=== PATIENT | female | born 1940 | race African-American/Black ===

== ENCOUNTER 2017-11-08 10:56 | Outpatient (CLI) | payer MEDICARE, OTHER ==
--- NOTE | 2017-11-08 13:43 | MRI ---
BRAIN MRI WITHOUT CONTRAST: Date: 11/08/17 HISTORY: Vision change. Memory loss. COMPARISON: None. TECHNIQUE: Brain MRI is performed without intravenous Gadolinium administration. Multisequential, multiplanar im aging is performed. FINDINGS: No hemorrhage on the axial gradient echo sequence. Calvarium has a normal marrow signal intensity. Mi dline brain parenchymal structures are unremarkable. The pituitary gland appears to be mildly enlarge d, measuring 1.1 cm, with a convex border. Pituitary brain MRI protocol is recommended. There are T2 and FLAIR white matter hyperintensities due to chronic small vessel ischemic change. Mundo tral arterial flow-voids are maintained. Absent restricted diffusion. No parenchymal mass, mass effect, or midline shift. Age-appropriate brain volume. Cortical almaguer-white matter differentiation is preserved. No evidence of hydrocephalus. Adequate aeration of the sinuses and mastoid air cells. IMPRESSION: 1. Prominent pituitary gland. Pituitary mass protocol MRI is recommended. 2. Chronic small vessel ischemic changes of white matter. POS: [facility]
--- NOTE | 2017-11-08 14:54 | EEG ---
Referring Physician: DR. LUPE SANCHEZ EEG # [id number] PROCEDURE: Outpatient electroencephalogram NAME OF PATIENT: Melissa Doll STUDY DATE: 11/08/2017 INDICATION: Memory impairment, vision changes EEG CLASSIFICATION: Normal awake and asleep: REPORT: This is a 22 channel digital EEG recording utilizing ten-twenty international electrode placement system on a patient who presents with memory impairment and vision changes. During wakefulness the background activity consists of low amplitude alpha rhythm of 8-9 hertz. It is symmetric and reactive. This activity is penetrated by low amplitude fast beta activity and also with myogenic activity representing frontalis and temporalis muscles bilaterally. DROWSINESS: The subject is able to attain periods of drowsiness with diffuse theta activity. No asymmetry or paroxysmal activity noted. SLEEP: Subject is able to attain some non-REM sleep with normal sleep potentials. Again, no asymmetry or paroxysmal activity noted. INDUCTION: PHOTIC STIMULATION: Some photic drive seen. HYPERVENTILATION: With fair effort results in some theta activity towards the end. IMPRESSION: THIS EEG IS CONSIDERED NORMAL AWAKE AND ASLEEP EEG. THERE IS NO CLEAR EPILEPTIFORM ACTIVITY OR FOCAL ABNORMALITY NOTED. CLINICAL CORRELATION IS RECOMMENDED Chemical Preparer: PRAVIN Inspector Missile: EEG.[email or web address] LLOYD
== END 2017-11-08 10:57 | disposition home or self-care (01) ==
LOC: MRI 10:56
PROVIDERS: ATTEND Student in an Organized Health Care Education/Training Program
DX: R41.3 Other amnesia (principal); H53.9 Unspecified visual disturbance; E23.6 Other disorders of pituitary gland
CPT/HCPCS: 70551; 95816

== ENCOUNTER 2017-11-23 10:08 | Outpatient (CLI) | payer MEDICARE, OTHER | END 2017-11-23 10:09 | disposition home or self-care (01) | LOC: MRI 10:08 | PROVIDERS: ATTEND Student in an Organized Health Care Education/Training Program | DX: R93.0 Abnormal findings on diagnostic imaging of skull and head, not elsewhere classified (principal); H53.9 Unspecified visual disturbance; R22.0 Localized swelling, mass and lump, head; G93.89 Other specified disorders of brain | CPT/HCPCS: 70553; 82565 ==

== ENCOUNTER 2018-12-28 12:22 | Outpatient (CLI) | payer MEDICARE, OTHER ==
--- NOTE | 2018-12-28 14:59 | RAD ---
OSSEOUS SURVEY: DATE: 12/28/2018. PROVIDED CLINICAL HISTORY: Multiple myeloma. FINDINGS: Lateral skull, frontal and lateral cervical, thoracic, and lumbar spine, frontal humeri, forearm, pel andre, femoral, and foreleg radiographs submitted. There is no evidence for radiographically apparent radiolucent lesion. Degenerative changes are seen involving the spine. Vertebral body heights are p reserved. Cholecystectomy clips are seen. IMPRESSION: No evidence for radiographically apparent myelomatous lesion. POS: [facility]
== END 2018-12-28 12:23 | disposition home or self-care (01) ==
LOC: BICRAD 12:22
PROVIDERS: ATTEND Internal Medicine Hematology & Oncology
DX: C90.00 Multiple myeloma not having achieved remission (principal); D72.818 Other decreased white blood cell count; R77.1 Abnormality of globulin
CPT/HCPCS: 77075

== ENCOUNTER 2019-03-03 19:55 | Observation (INO) | payer MEDICARE, OTHER ==
[2019-03-03] MEDS ORDERED: Acetaminophen 325 MG TAB PO PRN (22:22)
[2019-03-03] MEDS ORDERED: Acetaminophen 650 MG Suppository PR PRN (22:22)
[2019-03-03] MEDS ORDERED: Ondansetron ODT 4 MG TAB PO PRN (22:22)
[2019-03-03] MEDS ORDERED: Ondansetron PF 4 MG/2 ML Vial IVP PRN (22:22)
[2019-03-03 23:13] VITALS: BMI 21.6
--- NOTE | 2019-03-04 05:16 | HP ---
PRIMARY CARE DOCTOR: Azra Silver DO CODE STATUS: Full code. TIME OF EVALUATION: 9 p.m. CHIEF COMPLAINT: The patient is feeling weak and dizzy. HISTORY OF PRESENT ILLNESS: A 78-year-old female patient with past medical history of dizziness. The patient has had difficulty ambulating, having unsteady gait for the past few days with no clear triggers, no alleviating factors. She was seen to have some family member is in the room and she does not describe any other symptoms. Symptoms were moderate with no clear triggers, no alleviating factors. REVIEW OF SYSTEMS: Unable to fully explore. The patient has dementia and information does not seems to be accurate. This has been reviewed with family member and it seems like the patient not have any other significant symptoms. PAST MEDICAL HISTORY: Includes benign pituitary tumor, hypertension, appendectomy, and hysterectomy. PSYCHIATRIC HISTORY: No previous psych history. SOCIAL HISTORY: No alcohol. No drugs. No smoking history. KNOWN ALLERGIES: No known drug allergies. REPORTED MEDICATION: 1. Methotrexate. 2. Estradiol. 3. Amlodipine. 4. Namenda. 5. Folic acid. 6. Vitamin E. 7. Nitroglycerin. 8. Fentanyl. 9. Hydrochlorothiazide. PHYSICAL EXAMINATION: VITAL SIGNS: On presentation; blood pressure 145/58 with heart rate 63, respiratory rate was 19, temperature was 97.5. GENERAL APPEARANCE: The patient is alert and oriented, not in acute distress. HEENT: Eyes; normal conjunctivae. ENT; moist oral mucosa. Anicteric. No JVD. RESPIRATORY: Bilateral air entry. No rales. No wheezes. Symmetric expansion. CARDIOVASCULAR: Normal rate, regular rhythm. No murmurs. No gallop. No edema. ABDOMEN: Soft. Normal bowel sounds. MUSCULOSKELETAL: Baseline range of motion and strength. SKIN: Warm and intact. No pallor. No rash. No redness. Capillary refill seems to intact. NEUROLOGIC: No evidence of any new focal weakness. PSYCH: The patient has underlying dementia, can answer simple questions. Suboptimal judgment. LABORATORY DATA: Reviewed. The patient has white count 5.3, hemoglobin 11.3, MCV 104, platelet count 179. Coagulation; PT 14.8 with INR normal. Chemistry; sodium 135, potassium 4.2, chloride 102, carbon dioxide 25, anion gap 12, BUN 20, creatinine 1.21, GFR 52, glucose 147, calcium 10. Troponin was negative. Total bilirubin was normal. LFTs mildly elevated with AST 72 and ALT 69, alkaline phosphatase 64. Troponin was negative. Brain CT was done. No acute intracranial findings, exam no different than the 2018 MRI. ASSESSMENT AND PLAN: The patient has been placed in the hospital with following medical problems; 1. Possible posterior circulation transient ischemic attack, symptoms have improved. We will do a stroke protocol. We do MRI. We will follow results and treat accordingly. We will do echo, carotid Doppler. Rest of stroke protocol to be done. 2. History of underlying dementia. The patient will need supportive care. We will monitor and treat accordingly. 3. Uncontrolled hypertension with systolic blood pressure of 145. We will monitor and treat accordingly. 4. Deep venous thrombosis prophylaxis. Job ID: [id number]
[2019-03-04 05:30] LABS: #Lymphocytes 1.4 thou/uL (1.20-3.40); #Monocytes 0.4 thou/uL (0.11-0.59); %Basophils 0.8 % (0.0-1.0); %Lymphocytes 29.3 % (21.0-51.0); %Monocytes 8.6 % (0.0-10.0); %Neutrophils 60.4 % (42.0-75.0); Hemoglobin 11.4 g/dL (12.0-16.0); Mean Corpuscular HGB CONC 34.2 g/dL (32.0-36.0); Mean Corpuscular Hemoglobin 35.6 pg (27.0-31.0); Mean Platelet Volume 7.2 fL (7.4-10.4); Platelet Count 186 thou/uL (130-400); White Blood Cell (WBC) Count 4.9 thou/uL (4.8-10.8)
[2019-03-04 06:00] LABS: Anion Gap 9 mmol/L (10-20); BUN (Urea Nitrogen) 22 mg/dL (9.8-20.1); Calc. Creatinine Clearance 42 mL/min (70-130); Calcium 9.8 mg/dL (7.8-10.44); Carbon Dioxide 25 mmol/L (23-31); Cardiac Risk 4.1 (Less than 4.5); Chloride 107 mmol/L (98-107); Cholesterol 164 mg/dl (< 200 Desired); Estimated GFR-MDRD 63; Glucose 96 mg/dL (83-110); HDL Cholesterol 40 mg/dL (>60 Neg Risk); LDL Cholesterol, Calculated 101 mg/dL; Sodium 137 mmol/L (136-145); Triglycerides 117 mg/dL (Less than 150)
--- NOTE | 2019-03-04 08:00 | ULT ---
EXAM: Carotid Doppler PROVIDED CLINICAL HISTORY: TIA COMPARISON: None FINDINGS: Grayscale and color Doppler sonography with spectral analysis was performed of the extracranial carot id system bilaterally. There is no evidence for a hemodynamically significant internal carotid artery stenosis by peak systolic velocity or ratio criteria. Antegrade flow is seen in the vertebral arteries. IMPRESSION: No sonographic evidence for a hemodynamically significant internal carotid artery stenosis.
[2019-03-04] MEDS ORDERED: Enoxaparin Sodium 40 MG/0.4 ML SYRINGE SC SCH (09:00)
[2019-03-04] MEDS ORDERED: Prevnar 13-Val Conj/PF 0.5 ML SYRINGE IM ONE (09:00)
[2019-03-04 12:02] VITALS: BP 129/74; TEMP 97.4
--- NOTE | 2019-03-04 12:15 | MRI ---
MRI BRAIN WITH AND WITHOUT CONTRAST: HISTORY: Pituitary mass. Dementia. Transient dizziness. COMPARISON: 11/23/2017 FINDINGS: The calvarium has a normal T1 marrow signal intensity. Midline brain parenchymal structures are unre markable. No brain parenchymal mass, mass effect, or midline shift. Brain volume is age appropriate. Cortical almaguer white matter differentiation is preserved. Prominence of the ventricular system, greater than expected for the degree of atrophy. Correlate for normal pressure hydrocephalus. Central arterial flow voids are maintained. Absent restricted diffusion. T2 and FLAIR white matter hyperintensity due to chronic small vessel ischemic change. No pathologic enhancement of the brain parenchyma. Adequate aeration of the mastoid air cells. Mild mucosal thickening of the paranasal sinuses. Redemonstration of a T1 hypointense, T2 isointense lesion occupying the right aspect of the pituitary gland. There is slight leftward deviation of the infundibulum. On the post contrast images, there is no significant enhancement. This lesion measures 0.9 cm anterior-posterior x 0.7 cm medial-latera l x 0.9 cm craniocaudal. Previously, this lesion measured approximately 1 cm. No significant mass effect among the optic chiasm or prechiasmatic optic nerves. IMPRESSION: 1. Redemonstration of a mass occupying the right aspect of the pituitary gland, unchanged in size an d signal characteristics. 2. Prominence of the ventricular system. Correlate clinically for normal pressure hydrocephalus. POS: [facility]
--- NOTE | 2019-03-04 18:12 | CON ---
DATE OF TELEMEDICINE CONSULTATION: 03/04/2019 Nurse practitioner with me, Anaya. CHIEF COMPLAINT: Dizziness. HISTORY OF PRESENT ILLNESS: The patient was unable to give me a clear history because of her forgetfulness. Per , she became dizzy and was stumbling. He needed to help her walk around the house and she became confused and kept saying what happened to me, and this happened at 12 noon yesterday and it lasted about an hour. The patient has no memory of this. The patient had a pituitary tumor in the past and Alzheimer's, and says she has had chronic memory problems due to these condition. The patient did not report any weakness, numbness, or vision issues. PREVIOUS MEDICAL HISTORY: Pituitary tumor, hypertension, appendectomy, hysterectomy, and Alzheimer dementia. PSYCHIATRIC HISTORY: None. SOCIAL HISTORY: She does not drink or smoke. She lives with her . She is very pleasantly demented. 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 FAMILY HISTORY: She has 2 brothers and 5 sisters. Mother from dementia at 93. Father in his late 70s. REVIEW OF SYSTEMS: Difficult to obtain due to her memory problem. ALLERGIES: NO KNOWN DRUG ALLERGIES. MEDICATIONS: At home, she takes, 1. Methotrexate. 2. Estradiol. 3. Amlodipine. 4. Namenda. 5. Folic acid. 6. Vitamin E. 7. Nitroglycerin. 8. Fentanyl. 9. Hydrochlorothiazide. LABORATORY WORKUP: White count 4.9, hemoglobin 11.4, hematocrit 33.2, and platelet count 186. Chemistry; sodium 137, potassium 4, chloride 107, bicarb 25, BUN 22, creatinine 1.02. Triglycerides 117, cholesterol 164, LDL 101, HDL 40. Her MRI of the brain was completed after I requested this morning and her MRI showed re-demonstration of mass occupying the right aspect of the pituitary gland, unchanged in size and signal from the prior imaging and prominence of ventricular system correlate clinically for normal-pressure hydrocephalus and no evidence of infarct. PHYSICAL EXAMINATION: VITAL SIGNS: Temperature 97.6, pulse 73, respiratory rate 16, O2 saturations 97 %, and blood pressure 143/72. GENERAL APPEARANCE: Thin built, well-nourished, very pleasant lady. CHEST: Clear vesicular breathing. CARDIOVASCULAR: S1 and S2 heard. No murmurs in carotid exam. NEUROLOGIC: Higher intellectual function. She was not oriented to time, but oriented to place and person. Appropriate with some responses and can follow all commands. Cranial nerves 2 through 12 normal. Normal extraocular movements. Pupils 2 mm bilaterally. Tongue midline. No atrophy noted. Normal sensation of face bilaterally. Normal hearing to finger rub bilaterally and normal elevation of palate. Motor exam; bulk normal, tone normal. Strength 5/5 in upper and lower extremities in iliopsoas, hamstrings, quadriceps, ankle dorsiflexion, plantar flexion, deltoid, biceps, triceps, wrist extension and flexion, finger extension and flexion. Sensory exam normal bilaterally. Deep tendon reflexes throughout. Cerebellar, normal [id number], [id number]. Gait exam was normal. She was able to walk rather quickly. IMPRESSION AND RECOMMENDATIONS: The patient is a 78-year-old lady with known history of Alzheimer dementia and pituitary tumor. She had an episode of difficulty with walking and confusion, which lasted about an hour. She also has hypertension. Her examination was normal except for memory problems, which she has at baseline. Per , she is back to baseline. I do think she might have had a transient ischemic attack, which is the most appropriate diagnosis in her case. I reviewed her MRI report, which did not show any acute infarct and carotid artery Doppler was also negative. By the time of this dictation, the patient has been discharged from the hospital. If MRI was negative for an infarct, my recommendation was to discharge the patient to go home and she can stay on aspirin for stroke prophylaxis. Call Neurology if you have any further questions. Job ID: [id number] MTDD
--- NOTE | 2019-03-04 21:34 | DIS ---
DATE OF ADMISSION: 03/03/2019 DATE OF DISCHARGE: 03/04/2019 DISCHARGE DIAGNOSES: 1. Dizziness, multifactorial including heat exposure. 2. Pituitary adenoma, chronic. 3. Hypertension, stable. 4. Dementia, likely Alzheimer's type. CONSULTATIONS: None. PERTINENT LABORATORY AND X-RAY FINDINGS: Creatinine 1.02, estimated GFR of 63. Total cholesterol 164, triglycerides 117, HDL 40, LDL 101. CBC showed a white blood cell count of 4.9, hemoglobin 11, hematocrit 33, MCV 104, platelet count 186. CT of the brain without contrast dated 03/03/2019, showed no acute intracranial process. MRI of the brain dated 03/04/2019, showed no acute intracranial process. Mass noted in the right aspect of the pituitary gland, unchanged in size and position from previous MRI imaging in 2018. Carotid Doppler study dated 03/04/2019, showed no hemodynamically significant stenosis. HOSPITAL COURSE: The patient was initially observed on the stroke unit after presenting with weakness and dizziness. The patient underwent extensive evaluation including neuroimaging after initial concern for potential stroke like symptoms. The patient underwent CT and MRI imaging of the brain showing no acute process. The patient was noted with pituitary adenoma, unchanged in size and position dating back to 2018. The patient received general supportive management and remained clinically stable during the hospital course. The patient's vital signs remained stable throughout the hospital course and telemetry monitoring showed sinus mechanism without acute arrhythmia or dysrhythmia. I have examined the patient at time of discharge and discussed followup instructions. Family verbalized understanding and agreement, ready for discharge on 03/04/2019. DISCHARGE MEDICATIONS: 1. Amlodipine 2.5 mg p.o. daily. 2. Estrace 1 mg p.o. daily. 3. Folic acid 1 mg p.o. daily. 4. Namenda XR 28 mg p.o. daily. 5. Methotrexate 2.5 mg p.o. q.7 days. 6. Nitrostat 0.4 mg sublingually q.5 minutes p.r.n. chest pain. 7. Triamterene/HCTZ 37.5/25 mg 1 tablet p.o. daily. 8. Vitamin E 400 units p.o. daily. FOLLOWUP: The patient may follow up with her primary care provider, Dr. Azra Silver within 7 days of discharge. CONDITION ON DISCHARGE: Stable. ACTIVITY: Ad-sara. DIET: Heart healthy. CODE STATUS: Full. DISPOSITION: Home on 03/04/2019. Job ID: [id number]
== END 2019-03-04 14:51 | disposition home or self-care (01) ==
LOC: ERS 19:55 → 2SE 21:37
PROVIDERS: ADMIT Hospitalist; ATTEND Hospitalist
DX: R42 Dizziness and giddiness (principal); D35.2 Benign neoplasm of pituitary gland; I10 Essential (primary) hypertension; F03.90 Unspecified dementia, unspecified severity, without behavioral disturbance, psychotic disturbance, mood disturbance, and anxiety; Z88.2 Allergy status to sulfonamides; Z79.899 Other long term (current) drug therapy
CPT/HCPCS: 70553; 80048; 80061; 85025; 93880; 96372; 99284; G0378 ×3; 36415; J1650